=== PATIENT | female | born 1975 | race Caucasian/White ===

== ENCOUNTER 2020-06-08 09:21 | Outpatient (NON) | payer OTHER, SELFPAY ==
[2020-06-09 00:27] LABS: SARS-CoV-2 RNA PCR Negative
== END 2020-06-08 09:22 ==
LOC: ANHCOVIDDT 09:24
PROVIDERS: Visit Provider Physician Assistant Medical
DX: Z20.828 Contact with and (suspected) exposure to other viral communicable diseases (principal); R68.89 Other general symptoms and signs
CPT/HCPCS: 87635; C9803; U0003

== ENCOUNTER 2020-10-16 10:53 | Outpatient (CLI) | payer OTHER, SELFPAY ==
[2020-10-16 13:04] LABS: Free T4 Free Thyroxine 1.06 ng/mL (0.78-2.19)
== END 2020-10-16 10:54 | disposition home or self-care (01) ==
PROVIDERS: Visit Provider Internal Medicine Endocrinology, Diabetes & Metabolism
DX: E03.9 Hypothyroidism, unspecified (principal)
CPT/HCPCS: 36415; 84439; 84443

== ENCOUNTER 2021-04-19 09:04 | Outpatient (CLI) | payer OTHER, SELFPAY ==
--- NOTE | ~2021-04-19 | US_ITS ---
EXAMINATION: US thyroid DATE: 04/19/2021 09:44 INDICATION: Nontoxic single thyroid nodule TECHNIQUE: Multiple ultrasound images of the thyroid were obtained. COMPARISON: None. FINDINGS: The right thyroid lobe measures 4.8 x 1.6 x 1.7 cm. The left thyroid lobe measures 4.6 x 1.3 x 1.1 c m. 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 Because of the presence of a large population peripheral cells, the cytologic differential diagnosis includes follicular neoplasm, Hurthle cell (oncocytic) type. Unchanged solid wider than tall hypoechoic nodu les with ill-defined margins and 4 mm at the upper pole of the right thyroid and 5 mm at the mid left thyroid (TI-RADS 4, moderately suspicious , FNA if >=1.5 cm, annual followup is >=1 cm). Unchanged 6 mm coarse shadowing calcific lesion at the lower pole of the left thyroid. There is coarsened echote xture throughout the thyroid. IMPRESSION: 1. Stable appearance of a multinodular goiter with no change in the previously biopsied 1.7 cm right thyroid nodule with pathology as detailed above. Reviewed, dictated and finalized at location A.
== END 2021-04-19 09:05 | disposition home or self-care (01) ==
LOC: ANHIMG 09:05
PROVIDERS: PCP Hospitalist; Visit Provider Internal Medicine Endocrinology, Diabetes & Metabolism
DX: E03.9 Hypothyroidism, unspecified (principal); E04.2 Nontoxic multinodular goiter
CPT/HCPCS: 76536

== ENCOUNTER 2021-04-24 09:32 | Outpatient (CLI) | payer OTHER, SELFPAY ==
[2021-04-24 13:50] LABS: Free T4 Free Thyroxine 1.26 ng/mL (0.78-2.19)
== END 2021-04-24 09:33 | disposition home or self-care (01) ==
LOC: ANHWCLAB 09:34
PROVIDERS: PCP Hospitalist; Visit Provider Internal Medicine Endocrinology, Diabetes & Metabolism
DX: E03.9 Hypothyroidism, unspecified (principal); E04.1 Nontoxic single thyroid nodule
CPT/HCPCS: 36415; 84439; 84443

== ENCOUNTER 2021-06-21 14:40 | Outpatient (CLI) | payer OTHER, SELFPAY ==
--- NOTE | ~2021-06-21 | MM_ITS ---
EXAMINATION: MM screening [facility] BI [facility] HISTORY: Screening mammogram, family history of breast cancer in her mother. TECHNIQUE: Craniocaudal and mediolateral oblique 3-D tomosynthesis images were obtained and synthetic 2-D images were generated. CAD analysis was submitted and interpreted. COMPARISON: No prior mammogram is available for comparison at this institution. BREAST PARENCHYMAL COMPOSITION: The breasts are heterogeneously dense, which may obscure small masses . FINDINGS: RIGHT BREAST: There is no evidence of suspicious mass, calcification, or architectural distortion to suggest malignancy. LEFT BREAST: Focal asymmetry is present in the far posterior third of the inner left breast. IMPRESSION: 1. Focal asymmetry of the left breast which may represent the patient's baseline however no compariso n is currently available. 2. Comparison with prior mammograms is necessary. BI-RADS Category 0: Incomplete: Needs comparison with prior mammograms. Reviewed, dictated and finalized at location A. TREATER IMPRESSION: 1. Focal asymmetry of the left breast which may represent the patient's baselin e however no comparison is currently available. 2. Comparison with prior mammograms is necessary. BI-RADS Category 0: Incomplete: Needs comparison with prior mammograms.
== END 2021-06-21 14:41 | disposition home or self-care (01) ==
PROVIDERS: PCP Hospitalist
DX: Z12.31 Encounter for screening mammogram for malignant neoplasm of breast (principal); R92.8 Other abnormal and inconclusive findings on diagnostic imaging of breast
CPT/HCPCS: 77063; 77067

== ENCOUNTER 2021-07-19 11:37 | Outpatient (CLI) | payer OTHER, SELFPAY ==
--- NOTE | ~2021-07-19 | MM_ITS ---
EXAMINATION: MM diagnostic thelma LT [facility] HISTORY: Follow-up left breast asymmetries TECHNIQUE: Additional 3-D tomosynthesis images of the left breast were performed and synthetic 2-D im ages were generated. CAD analysis was submitted and interpreted. COMPARISON: 06/21/2021 BREAST PARENCHYMAL COMPOSITION: The breasts are heterogenously dense, which may obscure small masses FINDINGS: There are persistent asymmetries scattered throughout the left breast. No discrete mass or suspicious cluster of calcifications is identified. IMPRESSION: 1. Scattered left breast asymmetries. 2. Whole left breast ultrasound recommended. BI-RADS Category 0: Incomplete: Needs additional imaging evaluation. Reviewed, dictated and finalized at location A. TER TOUCH UP
== END 2021-07-19 11:38 | disposition home or self-care (01) ==
PROVIDERS: PCP Hospitalist
DX: R92.8 Other abnormal and inconclusive findings on diagnostic imaging of breast (principal)
CPT/HCPCS: 77061; 77065; G0279

== ENCOUNTER 2021-07-25 11:22 | Outpatient (CLI) | payer OTHER, SELFPAY ==
--- NOTE | ~2021-07-25 | US_ITS ---
EXAMINATION: US breast LT complete HISTORY: Left breast asymmetries on diagnostic mammogram TECHNIQUE: Complete left breast ultrasound is performed. COMPARISON: Mammograms dated 07/19/2021 and 06/21/2021 FINDINGS: There is no evidence of focal abnormal cystic or solid mass in the vicinity of the mammogra phic findings in question. IMPRESSION: No sonographic correlate identified for the mammographic asymmetries. Although probably benign, follo w-up left diagnostic mammogram and possible ultrasound in six months are recommended. BI-RADS category 3, probably benign findings. Reviewed, dictated and finalized at location A. ALT ENGINEER IMPRESSION: No sonographic correlate identified for the mammographic asymmetries. Although probably benign, follow-up left diagnostic mammogram and possible ultrasound in six months are recommended. BI-RADS category 3, probably benign findings.
== END 2021-07-25 11:23 | disposition home or self-care (01) ==
LOC: ANHIMG 11:27
PROVIDERS: PCP Hospitalist
DX: R92.8 Other abnormal and inconclusive findings on diagnostic imaging of breast (principal)
CPT/HCPCS: 76641

== ENCOUNTER 2022-07-24 15:02 | Outpatient (CLI) | payer OTHER, SELFPAY ==
--- NOTE | ~2022-07-24 | MM_ITS ---
EXAMINATION: MM screening [facility]ma BI [facility] HISTORY: Screening mammogram TECHNIQUE: Craniocaudal and mediolateral oblique 3-D tomosynthesis images were obtained and synthetic 2-D images were generated. Bilateral rotated lateral CC views. CAD analysis was submitted and interp reted. COMPARISON: 07/25/2021 complete left breast ultrasound examination 07/19/2021 diagnostic left mammogram 06/21/2021, 05/05/2020 bilateral screening mammogram examinations BREAST PARENCHYMAL COMPOSITION: The breasts are heterogeneously dense, which may obscure small masses . FINDINGS: There is no evidence of suspicious mass, calcification, or architectural distortion to sugg est malignancy in either breast. There has been no suspicious interval change. IMPRESSION: 1. No mammographic evidence of malignancy. 2. Recommend routine screening mammography in one year. BI-RADS Category 1: Negative Reviewed, dictated and finalized at location A. O VISUAL ENGINEER
== END 2022-07-24 15:03 | disposition home or self-care (01) ==
LOC: ANHIMG 15:06
PROVIDERS: PCP Hospitalist
DX: Z12.31 Encounter for screening mammogram for malignant neoplasm of breast (principal)
CPT/HCPCS: 77063; 77067

== ENCOUNTER 2022-11-11 13:12 | Emergency (ER) | payer OTHER, SELFPAY ==
[2022-11-11 13:35] VITALS: BP 123/86; PULSE 87; RESP 16; TEMP 37; O2SAT 99
--- NOTE | 2022-11-11 14:03 | ED.URI ---
HPI - URI/Sore Throat General Chief Complaint: Upper Respiratory Infection Stated Complaint: sorethroat Time Seen by Provider: 11/11/22 14:03 Source: patient Mode of arrival: ambulatory Limitations: no limitations History of Present Illness HPI Narrative: 46-year-old female presents with complaint of congestion, cough, body aches, fever, chills, sore throat for Two days. Patient reports that she took a home COVID test that was positive but that they COVID test was . States because her throat hurts so bad she is concerned that she may have strep. Would like a strep and COVID test today. Denies chest pain and shortness of breath. Taking ibuprofen to treat her symptoms. All systems reviewed and negative except as noted above. Related Data Home Medications Medication Instructions Recorded Confirmed bimatoprost 0.03 % eye drops 2 drp EACH EYE BID 10/16/20 11/11/22 brimonidine 0.2 %-timolol 0.5 % 2 drp EACH EYE Q12H 10/16/20 11/11/22 eye drops (Combigan) bimatoprost 0.01 % eye drops 2 drp EACH EYE HS 11/11/22 11/11/22 (Lumigan) levocetirizine 5 mg tablet (Xyzal) 5 mg PO DAILY 11/11/22 11/11/22 losartan 25 mg tablet 25 mg PO DAILY 11/11/22 11/11/22 Allergies Allergy/AdvReac Type Severity Reaction Status Date / Time Penicillins AdvReac Mild Hives Verified 11/11/22 13:54 Review of Systems Review of Systems: CONSTITUTIONAL: Denies fever, chills, or sweats. EYES: Denies visual changes, redness, or discharge. ENT: Reports rhinorrhea, congestion, sore throat. Denies otalgia. CARDIOVASCULAR: Denies chest pain, palpitations, or edema. RESPIRATORY: reports cough. Denies dyspnea. GASTROINTESTINAL: Denies abdominal pain, nausea, vomiting, or diarrhea. GENITOURINARY: Denies dysuria or hematuria. SKIN: Denies rash or itching. MUSCULOSKELETAL: Denies back pain, joint pain, or myalgia. NEUROLOGIC: Denies headache, numbness, or weakness. PSYCHIATRIC: Denies anxiety or depression. All other systems reviewed are negative, except as documented in HPI. [facility] Past Medical History Medical History (Updated 11/11/22 @ 14:20 by Guillermina Gray NP) Deviated septum Glaucoma Surgical History Surgical History Hx of tonsillectomy Family History Family History Father Hypertension Cerebrovascular accident Family history of diabetes mellitus in first degree relative Family history of type 2 diabetes mellitus Family history of heart disease in male family member before age 55 Sibling Patient's sister is in good health Mother Family history of malignant neoplasm of breast in first degree relative Other Diabetes mellitus Family history of cardiovascular disease Social History Social History Smoking status: Never smoker Alcohol intake: current Comments At time of signature, agree with nursing past medical, surgical, social and family history. There is no relevant family history pertinent to the presenting complaint. Exam Narrative: GENERAL: This is a well-nourished, well-developed patient, in no apparent distress. HEAD: normocephalic, atraumatic. EYES: PERRL. Sclera clear/white. Vision is grossly intact. EARS: External ears normal, auditory canals clear and without drainage, TMs normal without perforation. Hearing grossly intact. NOSE: External nose normal with clear nasal drainage, no erythema to nares. THROAT: Mucous membranes moist, posterior pharynx clear. NECK: Neck supple, non-tender without lymphadenopathy, masses or thyromegaly. CARDIOVASCULAR: Regular rate and rhythm without murmurs, gallops, or rubs. RESPIRATORY: Clear to auscultation. Breath sounds equal bilaterally. No wheezes, rales, or rhonchi. SKIN: warm, Dry, intact with no suspicious lesions or rash, good texture and turgor. NEURO: awake, alert, and orie
== END 2022-11-11 14:20 | disposition home or self-care (01) ==
PROVIDERS: Emergency Provider Nurse Practitioner Family; PCP Hospitalist
DX: U07.1 COVID-19 (principal); H40.9 Unspecified glaucoma
CPT/HCPCS: 87081; 87426; 87880; 99213; C9803; G0463

== ENCOUNTER 2023-06-29 13:54 | Emergency (ER) | payer OTHER, SELFPAY ==
--- NOTE | ~2023-06-29 | XR_ITS ---
EXAMINATION: XR chest 2V Exam Date/Time: 06/29/2023 16:42 CERAMIC CAPACITOR PROCESSOR HISTORY: cough for 10 days Comparison: 05/29/2018. RESULT: Lines, tubes, and devices: None. Lungs and pleura: Clear. Cardiomediastinal silhouette: Stable. Other: No acute osseous or upper abdominal finding. Stable mild compression deformity of an upper th oracic vertebral body. IMPRESSION: No acute cardiopulmonary process. Reviewed, dictated and finalized at location K. MIC CAPACITOR PROCESSOR
[2023-06-29 16:00] VITALS: BP 147/100; PULSE 90; RESP 16; TEMP 36.3; O2SAT 100
[2023-06-29 16:02] VITALS: BP 147/100; PULSE 90; RESP 16; TEMP 36.3; O2SAT 100
--- NOTE | 2023-06-29 17:05 | ED.GENADULT ---
HPI - General Adult General Chief complaint: Upper Respiratory Infection Stated complaint: Cough Source: patient Mode of arrival: ambulatory Limitations: no limitations History of Present Illness HPI narrative: Patient presents for evaluation of cough for last 10 days. She 1st noticed her symptoms after flight to [place]. She denies any fever, chills, nausea, vomiting, diarrhea, sore throat or chest pain. She now has developed fullness in both ears with muffled hearing. She has taken mucinex for her symptoms. She is not certain whether there is dextromethorphan in it. Her daughter has a sinus infection. She is not aware of any other sick contacts. She does not smoke. She states she feels like she is starting to get an ear infection . She has a recurrent history of pneumonia. Related Data Home Medications Medication Instructions Recorded Confirmed brimonidine 0.2 %-timolol 0.5 % 2 drp EACH EYE Q12H 10/16/20 06/29/23 eye drops (Combigan) bimatoprost 0.01 % eye drops 2 drp EACH EYE HS 11/11/22 06/29/23 (Lumigan) levocetirizine 5 mg tablet (Xyzal) 5 mg PO DAILY 11/11/22 06/29/23 losartan 25 mg tablet 25 mg PO DAILY 11/11/22 06/29/23 montelukast 10 mg tablet 10 mg PO HS 06/29/23 06/29/23 Allergies Allergy/AdvReac Type Severity Reaction Status Date / Time Penicillins AdvReac Mild Hives Verified 06/29/23 16:01 Review of Systems Review of Systems: CONSTITUTIONAL: Denies fever, chills, or sweats. EYES: Denies visual changes, redness, or discharge. ENT:Reports fullness in the ears with muffled hearing CARDIOVASCULAR: Denies chest pain, palpitations, or edema. RESPIRATORY: Reports cough. Denies SOB. GASTROINTESTINAL: Denies abdominal pain, nausea, vomiting, or diarrhea. GENITOURINARY: Denies dysuria or hematuria. SKIN: Denies rash or itching. MUSCULOSKELETAL: Denies back pain, joint pain, or myalgia. NEUROLOGIC: Denies headache, numbness, dizziness, or weakness. PSYCHIATRIC: Denies anxiety or depression. COUNTS INCLUDE 234 BEDS AT THE [facility] Past Medical History Medical History BMI 27.0-27.9,adult Deviated septum Glaucoma Bereket's thyroiditis Hypothyroidism Nontoxic multinodular goiter Obstructive sleep apnea (adult) (pediatric) Sleep apnea in adult Thyroid Nodule Surgical History Surgical History Hx of tonsillectomy Family History Family History Father Hypertension Cerebrovascular accident Family history of diabetes mellitus in first degree relative Family history of type 2 diabetes mellitus Family history of heart disease in male family member before age 55 Sibling Patient's sister is in good health Mother Family history of malignant neoplasm of breast in first degree relative Other Diabetes mellitus Family history of cardiovascular disease Social History Social History Smoking status: Never smoker Alcohol intake: current Drinks per week: 2 Alcohol use details: wine Substance use: never Lack of Transportation: No Lack of Food: Never True Current Housing: I Have Housing Concerned About Future Housing: No Difficulty Paying Gas/Electric Bills: No Difficulty Paying for Meds: No Currently Unemployed: No Education: Bachelor's Degree Difficulty w/ Childcare or Family Care: No Exam Narrative: GENERAL: Well-appearing, well-nourished, and in no acute distress. HEAD: Normocephalic, atraumatic. EYES: PERRLA and EOMI. ENT: Nares clear, no rhinorrhea or epistaxis. Mucous membranes moist. Oropharynx without tonsillar hypertrophy exudate or other lesions. There is yellow fluid behind bilateral TM's which are erythematous and bulging NECK: Supple. No adenopathy or masses. No carotid bruits or JVD CHEST: Clear to auscultation. No respirator
== END 2023-06-29 17:09 | disposition home or self-care (01) ==
PROVIDERS: Emergency Provider Nurse Practitioner; PCP Hospitalist
DX: H66.93 Otitis media, unspecified, bilateral (principal); E03.9 Hypothyroidism, unspecified; E06.3 Autoimmune thyroiditis; E04.2 Nontoxic multinodular goiter; H40.9 Unspecified glaucoma
CPT/HCPCS: 71046; 99213; G0463

== ENCOUNTER 2023-09-11 16:38 | Outpatient (CLI) | payer OTHER, SELFPAY ==
--- NOTE | ~2023-09-11 | MM_ITS ---
EXAMINATION: MM screening [facility]lma BI [facility] HISTORY: Screening mammogram TECHNIQUE: Craniocaudal and mediolateral oblique 3-D tomosynthesis images were obtained and synthetic 2-D images were generated. CAD analysis was submitted and interpreted. COMPARISON: 07/24/2022 bilateral screening mammogram 07/25/2021 diagnostic left mammogram and left complete ultrasound examination 07/19/2021 diagnostic left mammogram 06/21/2021 bilateral screening mammogram BREAST PARENCHYMAL COMPOSITION: The breasts are heterogeneously dense, which may obscure small masses . FINDINGS: There is no evidence of suspicious mass, calcification, or architectural distortion to sugg est malignancy in either breast. There has been no suspicious interval change. IMPRESSION: 1. No mammographic evidence of malignancy. 2. Recommend routine screening mammography in one year. BI-RADS Category 1: Negative Reviewed, dictated and finalized at location A.
== END 2023-09-11 16:39 | disposition home or self-care (01) ==
PROVIDERS: PCP Hospitalist
DX: Z12.31 Encounter for screening mammogram for malignant neoplasm of breast (principal)
CPT/HCPCS: 77063; 77067